=== PATIENT | male | born 1995 | race Caucasian/White ===

== ENCOUNTER 2017-09-24 12:42 | Emergency (ER) | payer OTHER ==
[~2017-09-24] VITALS: Ht 175.3 cm; Wt 136.4 kg
[2017-09-24 12:52] VITALS: BP 142/96; TEMP 98.8
[2017-09-24 14:17] VITALS: PULSE 116
== END 2017-09-24 14:17 | disposition home or self-care (01) ==
LOC: COL.ER 12:42
DX: S83.91XA Sprain of unspecified site of right knee, initial encounter (principal); T30.0 Burn of unspecified body region, unspecified degree; V49.9XXA Car occupant (driver) (passenger) injured in unspecified traffic accident, initial encounter